=== PATIENT | female | born 1985 | race Caucasian/White ===

== ENCOUNTER 2024-05-18 13:11 | Emergency (ER) | payer OTHER ==
[~2024-05-18] VITALS: Ht 165.1 cm; Wt 63.5 kg
[2024-05-18] MEDS ORDERED: IOHEXOL-300 100 ML VIAL IV ONE (16:05)
[2024-05-18] MEDS ORDERED: CT SWABBABLE VALVE TRANS SET 1 EA INFUS.SET MC ONE (16:06)
[2024-05-18] MEDS ORDERED: IV NS 0.9% 250 ML IV ONE (16:06)
[2024-05-18 16:44] LABS: PREGNANCY TEST URINE QUAL NEGATIVE (NEGATIVE)
[2024-05-18] MEDS: IBUPROFEN 600 MG TABLET PO ONE (17:49)
[2024-05-18 17:50] VITALS: BP 117/66; TEMP 98.3; O2SAT 99
== END 2024-05-18 17:50 | disposition home or self-care (01) ==
LOC: ER 13:17
DX: S09.90XA Unspecified injury of head, initial encounter (principal); M25.511 Pain in right shoulder; M25.572 Pain in left ankle and joints of left foot; R11.2 Nausea with vomiting, unspecified; V43.62XA Car passenger injured in collision with other type car in traffic accident, initial encounter; Y93.89 Activity, other specified; Y92.488 Other paved roadways as the place of occurrence of the external cause; Y99.8 Other external cause status
CPT/HCPCS: 99285; 72125; 73610; 73060; 73030; 71260; 70450; 74177; 84703; J7050; Q9967